=== PATIENT | female | born 1985 | race Caucasian/White ===

== ENCOUNTER → 2018-07-07 | Outpatient (CLI) | payer BC ==
--- NOTE | 2018-07-07 13:49 | Diagnostic Imaging Report ---
CLINICAL INDICATION: Patient complains of shortness of air and irregular heart rate times approximately 1 week. EXAM: Chest x-ray, PA and lateral views. COMPARISON: None. FINDINGS: Lungs/pleura: There is mild elevation of the right hemidiaphragm. The lungs are clear. There is no pneumothorax. There is no pleural effusion. Mediastinum: Unremarkable. Pulmonary vasculature: Unremarkable. Heart: Unremarkable. Bones/extrathoracic soft tissue: Unremarkable. IMPRESSION: 1. There is no radiographic evidence of acute cardiopulmonary process. 2. Mild elevation or eventration of the right hemidiaphragm. 3. Since the office was closed, the results of this report were faxed to [facility], for review by violetta at 1:49 pm. Dictated by: Dictated on workstation # [id number]
[2018-07-07 13:56] LABS: FIBRIN DEGRADATION PRODUCTS 0.39 UG/ML (0.00-0.49); INR 0.9 (0.8-1.4); PROTHROMBIN TIME PATIENT 12.4 SEC (12.2-14.7)
== END ==
LOC: RAD 13:12
PROVIDERS: ATTEND Nurse Practitioner Family
DX: I49.9 Cardiac arrhythmia, unspecified (principal); R06.02 Shortness of breath
CPT/HCPCS: 36415; 71046; 83880; 85379; 85610; 85730

== ENCOUNTER → 2018-07-10 | Outpatient (CLI) | payer BC ==
[~2018-07-10] MED LIST: CATHETER FLUSH 10 ML SYR IV PRN; IOHEXOL 350 MG/ML 100 ML (OMNIPAQUE 350) VIAL IV ONE; NS 100 ML (IVPB) BAG IV ONE; RECEIVED CONTRAST (Hold Metformin) IV SCH
[2018-07-10 12:11] LABS: ABG BASE EXCESS -0.1 MMOL/L (-2.5-2.5); ABG OXYGEN SATURATION 98 % (94-100); ABG PCO2 38 MMHG (35-45); ABG PH 7.42 (7.37-7.43); ABG PO2 99 MMHG (79-93)
[2018-07-10 12:16] LABS: ALLENS TEST POSITIVE
[2018-07-10 12:17] LABS: PATIENT TEMP 98.3; VENTILATOR NO
--- NOTE | 2018-07-10 13:47 | Diagnostic Imaging Report ---
PROCEDURE: CT chest and abdomen with contrast. TECHNIQUE: Multiple contiguous axial images were obtained through the chest and abdomen after the administration of intravenous contrast. INDICATION: Dyspnea. COMPARISON: CT abdomen/pelvis from 04/17/2013. FINDINGS: CT CHEST: Probable thyroidectomy. No supraclavicular or axillary lymphadenopathy. No mediastinal, hilar, or juxtaphrenic lymphadenopathy. There is a small amount of residual thymic tissue in the anterior mediastinum. The heart is normal in size. No pericardial effusion. Normal caliber thoracic aorta. No pleural effusion or pneumothorax. No pulmonary mass or consolidation. No worrisome focal osseous lesions in the chest. CT ABDOMEN: No free intraperitoneal air or fluid within the abdomen. The liver, gallbladder, and spleen are normal. No adrenal mass. The pancreas is normal. The kidneys enhance symmetrically. Normal caliber abdominal aorta. No abdominal lymphadenopathy. IMPRESSION: CHEST: No acute intrathoracic process. ABDOMEN AND PELVIS: No acute intra-abdominal process. Multiple attempts were made to contact the ordering doctor's office at [phone] for the requested call report; however, the number was busy or there was no answer. The last attempt was made at 1:42 PM on 07/10/2018. Dictated by: Dictated on workstation # [id number]
== END ==
LOC: RAD 11:41
PROVIDERS: ATTEND Nurse Practitioner Family
DX: R06.00 Dyspnea, unspecified (principal); R06.4 Hyperventilation
CPT/HCPCS: 36600; 71260; 74160; 82805

== ENCOUNTER → 2018-08-03 | Outpatient (CLI) | payer BC ==
[~2018-08-03] MED LIST changes: -CATHETER FLUSH 10 ML SYR IV PRN; +HOLD METFORMIN - RECEIVED CONTRAST 20 ML VIAL IV SCH; -NS 100 ML (IVPB) BAG IV ONE; -RECEIVED CONTRAST (Hold Metformin) IV SCH
--- NOTE | 2018-08-03 10:47 | Diagnostic Imaging Report ---
PROCEDURE: CT neck soft tissue with contrast. TECHNIQUE: Multiple contiguous axial images were obtained through the neck after the administration of contrast. Auto Exposure Controls were utilized during the CT exam to meet ALARA standards for radiation dose reduction. INDICATION: Thyroid disorder. COMPARISON: No prior studies are available for comparison. FINDINGS: The visualized intracranial structures are unremarkable. The posterior nasopharynx, oropharynx and larynx are unremarkable. Parapharyngeal fat planes are preserved. The submandibular and parotid glands are symmetric bilaterally. The thyroid lobes appear to be very small, perhaps owing to prior thyroid surgery. Clinical correlation is recommended. No discrete mass is detected. There are small lymph nodes in the jugulodigastric and posterior cervical regions. No definite cervical lymphadenopathy is detected. IMPRESSION: Both lobes of the thyroid appear to be very small, perhaps owing to prior surgery. No mass is detected. CT of the neck is otherwise unremarkable. Dictated by: Dictated on workstation # [id number]
== END ==
LOC: RAD 08:34
PROVIDERS: ATTEND Thoracic Surgery (Cardiothoracic Vascular Surgery)
DX: E07.9 Disorder of thyroid, unspecified (principal)
CPT/HCPCS: 70491

== ENCOUNTER 2018-10-03 20:50 | Outpatient (CLI) | payer BC | END 2018-10-04 06:50 | disposition home or self-care (01) | LOC: SLEEP 20:50 | PROVIDERS: ATTEND Thoracic Surgery (Cardiothoracic Vascular Surgery) | DX: G47.33 Obstructive sleep apnea (adult) (pediatric) (principal); R00.2 Palpitations; E05.00 Thyrotoxicosis with diffuse goiter without thyrotoxic crisis or storm; Z79.899 Other long term (current) drug therapy | CPT/HCPCS: 95810 ==

== ENCOUNTER 2021-01-22 11:01 | Day surgery (SDC) | payer BC ==
[2021-01-22] VITALS (11 sets, daily range): BP systolic 107–119; BP diastolic 60–93
[~2021-01-22] VITALS: Ht 170 cm; Wt 98.9 kg
--- OUTSIDE RECORDS SUMMARY | 2021-01-22 11:05 | XMS REPORT | Clinical Summary ---
Author Author [facility] Organization [facility] Address Unknown Phone Unavailable Care Team Providers Care Director Pharmaceutical Name Role Phone SaavedraAriane love LIBERTY PCP Allergies No Known Active Allergies Medications End Date Status Medication Sig Dispensed Refills Start Date Active levothyroxine (SYNTHROID, Take 1 tablet 0 07/14 LEVOTHROID) 137 MCG by mouth 0 tablet daily. Active nortriptyline (PAMELOR) Take 25 mg by 0 25 MG capsule mouth daily. 0 Active SUMAtriptan (IMITREX) 50 Take 1 tablet 0 07/16 MG tablet by mouth as 0 needed. Active busPIRone (BUSPAR) 5 MG Take 5 mg by 0 tablet mouth 2 (two) times a day as needed. Active metoprolol succinate TAKE 1 TABLET 90 tablet 3 (TOPROL-XL) 50 MG 24 hr (50 MG TOTAL) 0 tablet BY MOUTH DAILY Active Problems Problem Noted Date Thyroid disorder 07/25/2018 Graves disease 06/21/2014 Palpitations 04/27/2010 Family History Medical History Relation Name Comments Hypertension Father Hypertension Mother Relation Name Status Comments Father Mother Social History Date Tobacco Use Types Packs/Day Years Used Never Smoker Smokeless Tobacco: Never Used Comments Alcohol Use Standard Drinks/Week Yes 0 (1 standard drink = 0.6 o z pure alcohol) Sex Assigned at Date Recorded Not on file Last Filed Vital Signs Not on file Plan of Treatment Health Maintenance Due Date Last Done Comments Td/Tdap# 1985 COVID-19 Vaccine (1) 1999 Influenza Vaccine (#1) 2021 02/24/2018, 06/20/2017, 02/26/2013, Additional history exists Pneumococcal Vaccine: Aged Out No longer eligib le based on patient's age to Pediatrics (0 to 5 Years) complete this topic and At-Risk Patients (6 to 64 Years) Results Not on filefrom Last 3 Months Insurance Type Payer Benefit Subscriber ID Effective Phone Address Plan / Dates Group [facility] OUT OF [id number] 20 - [facility] Alisha Obando Personal/F Self 1985 [id number] [place] (Home) [place] [id number] Advance Directives For more information, please contact: [phone] Patient Province Archivist Explanation Type Date Recorded Health Care Directive
--- OUTSIDE RECORDS SUMMARY | 2021-01-22 11:05 | XMS REPORT | Clinical Summary ---
Author Author [facility] Organization [facility] Address Unknown Phone Unavailable Care Team Providers Care Link Machine Operator Name Role Phone Ariane Saavedra LIBERTY PP Allergies No known active allergies Medications End Date Status Medication Sig Dispensed Refills Start Date Active levothyroxine sodium Take 137 mcg 0 (TIROSINT) 137 mcg by mouth 1 capsule (one) time each day. Active nortriptyline (PAMELOR) Take 25 mg by 0 50 mg capsule mouth every night. Active SUMAtriptan (IMITREX) 50 Take 50 mg by 0 mg tablet mouth 1 (one) time if needed for migraine. May repeat dose once in 2 hours if no relief. Do not exceed 2 doses in 24 hours. Active predniSONE (DELTASONE) 20 0 mg tablet 9 Active Problems Problem Noted Date Palpitations 07/26/2018 Graves disease 07/25/2018 Thyroid disorder 07/25/2018 Family History Medical History Relation Name Comments Heart disease Father Hypertension Father Diabetes Mother Hypertension Mother Relation Name Status Comments Father Mother Social History Date Tobacco Use Types Packs/Day Years Used Former Smoker Smokeless Tobacco: Never Used Comments Alcohol Use Standard Drinks/Week socially 1 or less per month Yes 0 (1 standard drink = 0.6 o z pure alcohol) Alcohol Habits Answer Date Recorded How often do you have a drink containing alcohol? No t asked How many drinks containing alcohol do you have on No t asked a typical day when you are drinking? How often do you have six or more drinks on one Not asked occasion? Comment: socially 1 or less per month 9 Sex Assigned at Date Recorded Not on file Last Filed Vital Signs Reading Time Taken Comments Vital Sign 152/88 07/26/2018 1:01 PM CDT Blood Pressure 94 07/26/2018 1:01 PM CDT Pulse 36.6 C (97.8 F) 07/26/2018 1:01 PM CDT Temperature 16 07/26/2018 1:01 PM CDT Respiratory Rate 99% 07/26/2018 1:01 PM CDT Oxygen Saturation - - Inhaled Oxygen Concentration 97.1 kg (214 lb) 07/26/2018 1:01 PM CDT Weight 170.2 cm (5' 7") 07/26/2018 1:01 PM CDT Height 33.52 07/26/2018 1:01 PM CDT Body Mass Index Plan of Treatment Health Maintenance Due Date Last Done Comments MMR Vaccines (1 of - 1988 Standard series) Varicella Vaccines (1 of 1988 2 - 2-dose childhood series) COVID-19 Vaccine (1) 1999 Depression Screening 1999 DTaP,Tdap,and Td Vaccines 2006 (1 - Tdap) Pap Smear 2008 Influenza Vaccine (#1) 2021 HIB Vaccines Aged Out No longer eligible based on patient's age to complete this topic HPV Vaccines Aged Out No longer eligible based on patient's age to complete this topic Hepatitis A Vaccines Aged Out No longer eligibl e based on patient's age to complete this topic Hepatitis B Vaccines Aged Out No longer eligibl e based on patient's age to complete this topic IPV Vaccines Aged Out No longer eligible based on patient's age to complete this topic Meningococcal Vaccine Aged Out No longer eligib le based on patient's age to complete this topic Pneumococcal Aged Out No longer eligible based on patient's age to complete this topic Results Not on filefrom Last 3 Months Insurance Type Payer Benefit Subscriber ID Effective Phone Address Plan / Dates Group BCBS BLUE CROSS [id number] 2018- [address] [place] [address] Advance Directives Patient Cardiology Clinical Nurse Specialist Explanation Type Date Recorded Advance Directives and Living Will Power of Antique Repairer Care Teams Start Date End Date Link Machine Operator Relationship Specialty 07/24/18 Ariane Saavedra, LIBERTY PCP - General Nurse [address] [place] [id number]
[2021-01-22] MEDS ORDERED: ceFAZolin 2 GM IV Premixed 50 ML ONE (11:41)
--- NOTE | 2021-01-22 11:42 | Progress Note-Pre Operative ---
Pre-Operative Progress Note H&P Reviewed The H&P was reviewed, patient examined and no changes noted. Date Seen by Provider: Jan 22, 2021 Time Seen by Provider: 11:30 Date H&P Reviewed: Jan 22, 2021 Time H&P Reviewed: 11:30 Pre-Operative Diagnosis: sx chronic calcuous cholecystitis KOLTON ABREU MD Jan 22, 2021 11:42
[2021-01-22] MEDS ORDERED: ONDANSETRON 4 MG/2 ML (SDV) Z0FRAN IVP PRN ×2 (11:45→15:00)
[2021-01-22] MEDS ORDERED: morphine INJ 10 MG/ML 1ML (SYR OR VIAL) IVP PRN ×2 (11:45)
[2021-01-22] MEDS ORDERED: oxyCODONE/APAP 5/325MG (PERCOCET 5) TABLET PO PRN (11:45)
[2021-01-22] MEDS ORDERED: ACETAMINOPHEN 325 MG TABLET PO PRN (11:45)
--- NOTE | 2021-01-22 11:50 | Discharge Inst-Surgical ---
D/C Lap Instructions-HAYDEO Reconcile Patient Problems Problems Reviewed?: Yes New, Converted, or Re-Newed RX: Other Follow Up Appt in 2 weeks Activity as tolerated No driving for 24 hours No driving while on pain medications Incentive Spirometry use every 2 hours while awake Regular Diet Symptoms to Report: Fever over 101 degree F, Nausea/Vomiting Infection Signs and Symptoms to report: Increased redness, Foul odor of wound, Increased drainage Bathing instructions: May shower Operative Area Clean/Dry; Keep incision clean/dry If any problems/questions: Contact your physician or go to Emergency Room MOLLY BENNETT APRN Jan 22, 2021 11:50
[2021-01-22] MEDS: LACTATED RINGERS 1,000 ML IV PRN ×2 (11:54→14:44)
[2021-01-22] MEDS ORDERED: ceFAZolin 2 GM IV Premixed 50 ML IV ONE (12:00)
[2021-01-22] MEDS ORDERED: ONDANSETRON 4 MG/2 ML (SDV) Z0FRAN ONE (12:10)
[2021-01-22] MEDS ORDERED: LIDOCAINE PF 2% 5 ML (XYLOCAINE) VIAL ONE (12:10)
[2021-01-22] MEDS ORDERED: ROCURONIUM 10 MG/ML 5 ML SYRINGE IV ONE (12:10)
[2021-01-22] MEDS ORDERED: fentaNYL INJ 100 MCG/2 ML AMP ONE ×2 (12:10→14:57)
[2021-01-22] MEDS ORDERED: proPOfol 200 MG/20 ML (DIPRIVAN) VIAL IV ONE (12:10)
[2021-01-22] MEDS ORDERED: SEVOFLURANE (ULTANE) 15 ML INHAL SOLN ONE (12:10)
[2021-01-22] MEDS ORDERED: MIDAZOLAM 2 MG/2 ML (VERSED) VIAL ONE (12:10)
[2021-01-22] MEDS ORDERED: LIDOCAINE/EPI 1%-1:200,000 (XYLOCAINE) 30 ML VIAL ONE (12:13)
[2021-01-22] MEDS ORDERED: NEOSTIGMINE 3 MG/3 ML VIAL ONE (14:42)
[2021-01-22] MEDS ORDERED: GLYCOPYRROLATE 0.2 MG/ML (ROBINUL) 2 ML VIAL ONE (14:42)
[2021-01-22] MEDS ORDERED: MEPERIDINE (DEMEROL) INJ 50 MG/ML IVP ONE (15:00)
[2021-01-22] MEDS ORDERED: HYDROmorphone 2 MG/ML VIAL (DILAUDID) IV ONE (15:00)
[2021-01-22] MEDS ORDERED: fentaNYL INJ 100 MCG/2 ML AMP IVP ONE (15:00)
[2021-01-22] MEDS ORDERED: PROMETHAZINE INJ 25 MG/ML (PHENERGAN) AMP IVP ONE (15:00)
--- NOTE | 2021-01-22 15:00 | Anesthesia-General Post-Op ---
General Patient Condition Mental Status/LOC: Same as Preop Cardiovascular: Satisfactory Nausea/Vomiting: Absent Respiratory: Satisfactory Pain: Controlled Complications: Absent Post Op Complications Complications None Follow Up Care/Instructions Patient Instructions None needed. Anesthesia/Patient Condition Patient Condition Patient is doing well, no complaints, stable vital signs, no apparent adverse anesthesia problems. No complications reported per nursing. REINA CESAR CRNA Jan 22, 2021 15:00
--- NOTE | 2021-01-22 15:21 | Progress Note-Post Operative ---
Post-Operative Progess Note Surgeon (s)/Ledger Poster (s) Surgeon KOLTON ABREU MD Ledger Poster: regina weir SEWING MACHINIST Pre-Operative Diagnosis sx chronic calcuous cholecystitis Post-Operative Diagnosis same Procedure & Operative Findings Date of Procedure 01/22/21 Procedure Performed/Findings laparoscopic cholecystectomy Anesthesia Type get Estimated Blood Loss Estimated blood loss (mL): minimal Specimens/Packing Specimens Removed none KOLTON ABREU MD Jan 22, 2021 15:21
--- NOTE | 2021-01-23 01:20 | OPERATIVE REPORT ---
DATE OF SERVICE: 01/22/2021 PREOPERATIVE DIAGNOSIS: Symptomatic chronic calculous cholecystitis. POSTOPERATIVE DIAGNOSIS: Symptomatic chronic calculous cholecystitis. PROCEDURE: Laparoscopic cholecystectomy. SURGEON: Kolton Abreu MD. ARCHIVAL STUDIES PROFESSOR: Selwyn Edmonds APRN. ANESTHESIA: General endotracheal. ESTIMATED BLOOD LOSS: Minimal. FINDINGS: Distended gallbladder with two large gallstones. DISPOSITION: The patient tolerated the procedure well. INDICATIONS: The patient is a 35-year-old female who has had a 6-month history of crampy pain in the right upper abdominal quadrant with radiation towards the back on an intermittent basis; however, the past 2 weeks, this has become much more frequent as well as more severe. She reports that her symptoms usually follow a meal. She reports nausea; however, no vomiting and also does report diarrhea. An ultrasound was performed, which showed gallstones. DESCRIPTION OF PROCEDURE: The patient was brought to the operating room, laid supine on the table. After adequate IV pain and sedative medications and general endotracheal intubation, the abdomen was prepped and draped in standard surgical fashion. A 0.5% Marcaine with epinephrine was used to anesthetize the overlying skin in the left upper abdominal quadrant and transverse skin incision made using 15 blade. An 0 silk suture was applied to the medial aspect of incision for retraction and a Veress needle inserted with low opening pressure of 0 mmHg. The abdomen was then insufflated to 15 mmHg pressure. The Veress needle removed and a 5 mm XL trocar placed followed by a 5 mm 45-degree angle laparoscope visualizing the peritoneal cavity. A 4-quadrant abdominal exploration was performed. There was a distended gallbladder with no gallbladder wall thickening. Under direct visualization, we then proceeded to place a supraumbilical 10 mm port after the skin and peritoneal lining were anesthetized using 0.5% Marcaine with epinephrine and a transverse skin incision made using a 15 blade. In a similar manner, a right upper abdominal quadrant 5 mm port was placed. The patient was then placed in reverse Trendelenburg position as well as plane right side up, left side down. The fundus of the gallbladder was then retracted anteriorly and superiorly. The hepatoduodenal ligament was then dissected using blunt dissection as well as electrocautery on the hook instrument as well as the [place] dissector. The entire critical view of safety was identified including the triangle of Calot as well as the cystic duct and artery as only two structures going into the gallbladder as well as the cystic plate behind the proximal gallbladder. A timeout was then taken, and the cystic duct and artery were then clipped proximally and distally and cut with EndoShears. The gallbladder was then dissected off of the liver bed using electrocautery with visualization of good hemostasis as well as no leaking ducts of Luschka. The gallbladder was removed through the 10 mm port site using an EndoCatch bag. The 10 mm port site fascia and peritoneum were then closed under direct visualization using a Willian-Bel device and 0 Vicryl suture. The abdomen was desufflated and the remaining ports removed. All skin incisions were closed using 4-0 Monocryl running subcuticular sutures. Wounds were then cleaned and covered with Dermabond. The patient tolerated the procedure well. We will start IV normal pain medication as well as a clear liquid diet. Once she is tolerating clears, has a good pain control with oral pain medications, ambulating well, we will discharge her home where she will be instructed to do no heavy lifting or exertion for the next two weeks. Job ID: [id number] DocumentID: [id number] Dictated Date: 01/22/2021 15:06:28 Attending Urologist Date: 01/23/2021 01:19:50 Dictated By: KOLTON ABREU MD
== END 2021-01-22 17:10 | disposition home or self-care (01) ==
LOC: SDC 11:01
PROVIDERS: ATTEND Surgery
DX: K80.10 Calculus of gallbladder with chronic cholecystitis without obstruction (principal); I49.9 Cardiac arrhythmia, unspecified; I10 Essential (primary) hypertension; E07.9 Disorder of thyroid, unspecified; Z79.890 Hormone replacement therapy; Z78.0 Asymptomatic menopausal state; Z79.899 Other long term (current) drug therapy; Z11.2 Encounter for screening for other bacterial diseases
CPT/HCPCS: 87081

== ENCOUNTER → 2021-07-08 | Outpatient (CLI) | payer BC ==
--- NOTE | 2021-07-08 11:25 | Diagnostic Imaging Report ---
PROCEDURE: CT abdomen and pelvis without contrast. TECHNIQUE: Multiple contiguous axial images were obtained through the abdomen and pelvis without the use of intravenous contrast. Auto Exposure Controls were utilized during the CT exam to meet ALARA standards for radiation dose reduction. INDICATION: Right flank pain radiating to the back. COMPARISON: Correlation is made with prior CT from 07/10/2018. FINDINGS: The lung bases are clear. The liver is unremarkable. Gallbladder is surgically absent. No biliary ductal dilatation is seen. The pancreas and spleen are unremarkable. No adrenal mass is identified. No renal calculi are identified. There is no hydronephrosis. No ureteral calculi are detected. The aorta is nonaneurysmal. Bowel loops are normal in caliber and appear nonobstructed. There is no free fluid or fluid collection. Bladder is decompressed. Uterus appears to be surgically absent. Bony structures are nonacute. IMPRESSION: No acute abnormality in the abdomen or pelvis is identified. No urinary tract calculi or obstruction is detected. Dictated by: Dictated on workstation # [id number]
== END ==
LOC: RAD 10:23
PROVIDERS: ATTEND Nurse Practitioner Family
DX: R10.11 Right upper quadrant pain (principal); R31.9 Hematuria, unspecified; Z90.49 Acquired absence of other specified parts of digestive tract
CPT/HCPCS: 74176